=== PATIENT | female | born 1980 | race Caucasian/White ===

== ENCOUNTER → 2019-07-07 | Outpatient (CLI) | payer OTHER ==
--- NOTE | 2019-07-07 12:33 | US ---
EXAMINATION TYPE: US OB >= 14 wk fetus DATE OF EXAM: 07/07/2019 COMPARISON: None CLINICAL HISTORY: follow up pylectasis TECHNIQUE: Transabdominal (TA) GESTATIONAL AGE / DATING Physician Established: (31 weeks/0 days) EDC: 09/08/19 Dates by LMP: unknown Dates by First Scan: No previous this is first scan Dates by Current Scan: (32 weeks/0 days) EDC: 09/01/19 SURVEY IUP: Single PLACENTA: Anterior PREVIA: No Previa ROM: 13.6 cm Normal CERVICAL LENGTH (transabdominal: norm > 3.0cm): 3.0 cm BIOMETRY PRESENTATION: Vertex LIE: Longitudinal BPD: 8.1 cm 32 weeks / 4 days HC: 29.5 cm 32 weeks / 5 days AC: 26.9 cm 31 weeks / 1 days FL: 6.0 cm 31 weeks / 2 days ESTIMATED WEIGHT IN GRAMS: 1749 grams ESTIMATED WEIGHT IN LBS/OZ: 3 lbs. 14 oz. WEIGHT PERCENTAGE BASED ON ESTABLISHED DATES: 50% HC/AC: 1.10 Normal FL/AC: 22% Normal HEART RATE: 132 bpm RHYTHM: Normal dilated renal pelvis = 0.7cm left kidney and 0.7cm right kidney IMPRESSION: 1. Single intrauterine gestation estimated at 32 weeks 0 days gestation based on the current ultrasou nd measurements. Correlate this with her physician established EDC of 31 weeks 0 days. 2. There appears to be prominence of the bilateral renal pelves fetus. Follow-up is recommended. 3. Cardiac activity measures 132 bpm was observed during the study.
== END | disposition home or self-care (01) ==
LOC: RADUSWWP 09:48
PROVIDERS: ATTEND Obstetrics & Gynecology
DX: Z3A.32 32 weeks gestation of pregnancy (principal)
CPT/HCPCS: 76805